=== PATIENT | male | born 1930 | race Caucasian/White ===

== ENCOUNTER 2018-06-11 08:34 | Emergency (ER) | payer OTHER ==
[~2018-06-11] VITALS: Ht 182.9 cm; Wt 75.7 kg
[2018-06-11 08:43] VITALS: BP_SYST 120
--- NOTE | 2018-06-11 08:55 | NUR ---
Patient to ER bed 4 to gown for evaluation. Side rails up. Report given to Maikel SANTOS.
--- NOTE | 2018-06-11 09:00 | NUR ---
Pt bib family c/o itchiness at nursing facility.Pt's family states out of anti-itch cream. Pt dry flaky skin
--- NOTE | 2018-06-11 09:01 | NUR ---
ER at bedside examining patient.
[2018-06-11 09:30] VITALS: BP_SYST 120
--- NOTE | 2018-06-11 09:30 | NUR ---
Patient given written and verbal discharge instructions and verbalizes understanding. ER MD discussed with patient the results and treatment provided. Patient in stable condition. ID arm band removed. Rx of TRIAMCOLONE given. Patient educated on pain management and to follow up with PMD. Pain Scale 0. Opportunity for questions provided and answered. Medication side effect fact sheet provided.
== END 2018-06-11 09:30 | disposition home or self-care (01) ==
LOC: SED 08:34
DX: L30.8 Other specified dermatitis (principal); Z88.0 Allergy status to penicillin
CPT/HCPCS: 99283